=== PATIENT | male | born 1940 | race Asian ===

== ENCOUNTER 2017-08-02 14:49 | Inpatient (IN) | payer OTHER ==
[~2017-08-02] VITALS: Ht 167.6 cm; Wt 75.3 kg
[~2017-08-02 14:49] MED LIST: ATOR10TA PO; VALS40TA4
--- NOTE | 2017-08-02 15:00 | NUR ---
PRESENTS TO ER C/O CHEST PAIN STARTED THIS AM. A/OX 4, BREATHING EVEN AND UNLABORED. NO SOB, NAD, VITALS STABLE. SKIN WARM AND DRY. SAFETY AND COMFORT MEASURES IN PLACE. AWAITING MD ORDERS.
--- NOTE | 2017-08-02 15:10 | NUR ---
NEW IV STARTED ON RAC, 18G. BLOOD DRAWN AND SENT TO LAB.
[2017-08-02 15:24] LABS: BASOPHILS # (AUTO) 0.1 /CMM (0.0-0.2); BASOPHILS % (AUTO) 0.6 % (0.0-2.0); EOSINOPHILS % (AUTO) 0.4 % (0.0-6.0); HEMATOCRIT 45 % (39-51); HEMOGLOBIN 15.4 g/dL (13.5-17.5); LYMPHOCYTES % (AUTO) 10.2 % (20.0-44.0); MEAN CORPUSCULAR HGB CONC 35 g/dl (31.0-36.0); MEAN CORPUSCULAR VOLUME 92 fL (80-96); MONOCYTES # (AUTO) 0.6 /CMM (0.1-1.30); MONOCYTES % (AUTO) 6.6 % (2.0-12.0); NEUTROPHILS # (AUTO) 7.9 /CMM (1.8-8.9); NEUTROPHILS % (AUTO) 82.2 % (43.0-81.0); PLATELET COUNT (AUTO) 150 /CMM (150-450); RDW COEFFICIENT OF VARIATION 12.6 (11.5-15.0); RED BLOOD CELL COUNT(AUTO) 4.81 MIL/uL (4.5-6.0); WHITE BLOOD COUNT (AUTO) 9.6 K/uL (4.3-11.0)
[2017-08-02] MEDS ORDERED: LOSA50TA21 PO (15:27)
[2017-08-02] MEDS ORDERED: DONE10TA44 PO (15:27)
[2017-08-02] MEDS ORDERED: TAMS0.4C34 PO (15:27)
[2017-08-02] MEDS ORDERED: OMEP20CA10 PO (15:27)
[2017-08-02] MEDS ORDERED: NITROGLYCERIN PACKET 1 GM PACKET ONE (15:27)
[2017-08-02] MEDS ORDERED: TRAV5DRO RIGHTEYE (15:27)
[2017-08-02] MEDS ORDERED: ASPIRIN 325 MG TABLET ONE (15:28)
[2017-08-02] MEDS ORDERED: NITROGLYCERIN PACKET 1 GM PACKET TD ONE (15:30)
[2017-08-02] MEDS ORDERED: ASPIRIN 325 MG TABLET PO ONE (15:30)
[2017-08-02 15:33] LABS: CALCIUM, SERUM 8.5 mg/dL (8.5-10.1); CARBON DIOXIDE 30 mmol/L (21-32); CHLORIDE 104 mmol/L (98-107); CREATININE 1.1 mg/dL (0.6-1.3); GLUCOSE 166 mg/dL (74-106); POTASSIUM 3.5 mmol/L (3.5-5.1); SODIUM SERUM 140 mmol/L (136-145); UREA NITROGEN, BLOOD 18 mg/dL (7-18)
--- NOTE | 2017-08-02 15:33 | NUR ---
PATIENT MEDICATED PER MD ORDERS.
[2017-08-02 15:39] LABS: INR 0.95 (0.85-1.15)
[2017-08-02 15:41] LABS: TROPONIN I < 0.017 ng/mL (0.00-0.056)
[2017-08-02 15:48] LABS: B-TYPE NATRIURETIC PEPTIDE 29 PG/ML (0-125)
--- NOTE | 2017-08-02 15:48 | NUR ---
CALLED [facility] PROSTHETIC DENTIST WAS PAGED.
--- NOTE | 2017-08-02 16:16 | NUR ---
TELE 307.1, OTONIEL ESPINOZA
--- NOTE | 2017-08-02 16:18 | NUR ---
REPORT GIVEN TO OTONIEL ESPINOZA FOR MARTHA UPON ADMISSION.
--- NOTE | 2017-08-02 16:25 | NUR ---
PATIENT TRANSPORTED TO [facility] VIA ACLS PROTOCOL. OTONIEL ESPINOZA TO PROVIDE MARTHA.
[2017-08-02] MEDS ORDERED: MAG HYDROX/AL HYDROX/SIMETH 30 ML UDC PO PRN (16:30)
[2017-08-02] MEDS ORDERED: ACETAMINOPHEN 325 MG TABLET PO PRN (16:30)
[2017-08-02] MEDS ORDERED: HYDROCODONE/APAP 5/325MG 1 EACH TABLET PO PRN (16:30)
[2017-08-02] MEDS ORDERED: ENOXAPARIN SODIUM 40 MG/0.4 ML DISP.SYRIN SQ SCH (16:30)
[2017-08-02] MEDS ORDERED: MAGNESIUM HYDROXIDE 30 ML UDC PO PRN (16:30)
[2017-08-02] MEDS ORDERED: ZOLPIDEM TARTRATE 5 MG TABLET PO PRN (16:30)
[2017-08-02] MEDS ORDERED: ONDANSETRON HCL/PF 4 MG/2 ML VIAL IVP PRN (16:30)
[2017-08-02] MEDS ORDERED: MORPHINE SULFATE INJ 4 MG/ML DISP.SYRIN IV PRN (16:30)
[2017-08-02] MEDS ORDERED: Z GUARD REMEDY 2 OZ OINT TP PRN (16:30)
--- NOTE | 2017-08-02 16:45 | NUR ---
telecom coordinatorculinary intern notes Admitted a 76 years old male patient who came in due to chest pain. Patient is alert and oriented x 4, verbally responsive and able to make needs known. On tele monitor SR heart rate 85. Skin assessment done and pictures taken and filed in the chart. No complaint of pain or discomfort at this time. nitro on the left chest noted. Dr. Simmons ordered medications and on the medication list. kept patient clean and comfortable in bed, call light with in patient reach, will continue to monitor accordingly.
[2017-08-02] MEDS ORDERED: ATORVASTATIN 10 MG TABLET PO SCH (18:00)
[2017-08-02] MEDS ORDERED: TAMSULOSIN 0.4 MG CAP.SR.24H PO SCH (18:00)
--- NOTE | 2017-08-02 19:27 | NUR ---
telecommunications administrator closing notes All needs provided, attended, and anticipated. Patient in stable condition. Endorsed to next shift RN to continue care. Call light with in patient reach.
--- NOTE | 2017-08-02 19:33 | NUR ---
TELE/RN OPENING NOTES PATIENT AWAKE, ALERT, ORIENTED X3, ABLE TP VERBALIZE NEEDS, RESPIRATIONS EVEN AND UNLABORED, SKIN WARM TO TOUCH, DENIES PAIN, HAD LATE DINNER ABLE TO EAT 100% DINNER, PERSONAL BELONGINGS WITHIN REACH, FLUIDS AT BEDSIDE. CALL LIGHTS WITHIN REACH, BED IN LOCK POSITION.
[2017-08-02 20:00] VITALS: BP 101/62
--- NOTE | 2017-08-02 20:06 | NUR ---
TELE/RN NOTES DAUGHTER CAME TO SEE FATHER,
[2017-08-02] MEDS: NITROGLYCERIN PACKET 1 GM PACKET TOP SCH (20:44)
--- NOTE | 2017-08-02 20:45 | NUR ---
TELE/RN NOTES PATIENT DAUGHTER AND CONFIRMED BY PATIENT THAT PATIENT HAD HIT HIS HEAD BY THE SIDE TABLE IN HIS HOME PRIOR TO BEING ADMITTED TODAY AND WAS NOT ABLE TO GIVE THE DETAIL TO ER MDUPON ADMISSION,PATIENT ALERT, ORIENTED X3, WITH DEMENTIA AND TAKING DONEPEZIL AT BEDTIME. HEAD CHECK AND ASSESSED, NO PAIN REPORTED, NO SWELLING, WILL INFORM MD FOR THE REPORT FOR ANY ORDER.LAY NURSE MADE AWARE.
--- NOTE | 2017-08-02 21:18 | NUR ---
TELE/RN MD WALLPAPER CLEANER PAMELA CONTACTED REPORTED DAUGHTER CONCERN AND CONFIRMED BY PATIENT REGARDING INCIDENT OF UNWITNESSED FALL IN PATIENT HOME UPON ADMISSION TODAYU, PATIENT HAS DEMENTIA AND NOT ABLE TO PROVIDE INFORMATION ABOUT HITTING HIS HEAD THAT CAUSED FALL. MD MADE AWARE AND REOPORTED B/P IN LOW SIDE BUT NO SWOLLEN HEAD OBSERVED, ALERT X2, WITH OCCASIONAL NO EYE CONTACT AND NOTED FORGETFULNESS.
[2017-08-02] MEDS ORDERED: LATANOPROST EYE DROP 0.005% 2.5 ML BOTTLE RIGHTEYE SCH (22:00)
[2017-08-02] MEDS ORDERED: DONEPEZIL 5 MG TABLET PO SCH (22:00)
--- NOTE | 2017-08-02 22:30 | NUR ---
tele/rn notes CT SCAN STAT ORDERED, PATIENT WAS SENT ON W/C FOR CT SCAN
--- NOTE | 2017-08-02 22:51 | NUR ---
TELE/RN NOTES PATIENT CAME BACK FROM CT SCAN
[2017-08-03] VITALS: BP 103/65
[2017-08-03 04:00] VITALS: BP 111/59
[2017-08-03] MEDS: NITROGLYCERIN PACKET 1 GM PACKET TOP SCH ×2 (04:48→13:56)
[2017-08-03 06:23] LABS: BASOPHILS % (AUTO) 0.5 % (0.0-2.0); EOSINOPHILS % (AUTO) 2.1 % (0.0-6.0); HEMATOCRIT 42 % (39-51); HEMOGLOBIN 14.1 g/dL (13.5-17.5); LYMPHOCYTES % (AUTO) 16.1 % (20.0-44.0); MEAN CORPUSCULAR HGB CONC 34 g/dl (31.0-36.0); MEAN CORPUSCULAR VOLUME 98 fL (80-96); MONOCYTES # (AUTO) 0.6 /CMM (0.1-1.30); MONOCYTES % (AUTO) 9.4 % (2.0-12.0); NEUTROPHILS # (AUTO) 4.4 /CMM (1.8-8.9); NEUTROPHILS % (AUTO) 71.9 % (43.0-81.0); PLATELET COUNT (AUTO) 136 /CMM (150-450); RDW COEFFICIENT OF VARIATION 13.8 (11.5-15.0); RED BLOOD CELL COUNT(AUTO) 4.25 MIL/uL (4.5-6.0); WHITE BLOOD COUNT (AUTO) 6.1 K/uL (4.3-11.0)
--- NOTE | 2017-08-03 06:29 | NUR ---
307-1 tele/rn notes PATIENT IN BED, ALERT, ORIENTED X3 BUT FORGETFUL, ABLE TO SLEEP DURING THE NIGHT, COOPERATIVE TO CARE, RESPIRATIONS EVEN AND UNLABORED, SKIN WARM TO TOUCH, MONITORING FOR ANY PAIN, KEPT SKIN INTACT AND DRY, CALL LIGHTS WITHIN REACH, BED IN LOCK POSITION. WILL ENDORSE TO AM RN FOR MARTHA.
[2017-08-03 06:34] LABS: CHOLESTEROL 129 mg/dL (<200); HDL CHOLESTEROL 42 mg/dL (40-60); LDL 76 mg/dL (0-99); TRIGLYCERIDES 154 mg/dL (30-150)
[2017-08-03 06:37] LABS: CALCIUM, SERUM 8.2 mg/dL (8.5-10.1); CARBON DIOXIDE 27 mmol/L (21-32); CHLORIDE 105 mmol/L (98-107); CREATININE 0.9 mg/dL (0.6-1.3); GLUCOSE 123 mg/dL (74-106); MAGNESIUM 2.1 mg/dL (1.8-2.4); PHOSPHORUS 3.3 mg/dL (2.5-4.9); POTASSIUM 3.8 mmol/L (3.5-5.1); SODIUM SERUM 140 mmol/L (136-145); UREA NITROGEN, BLOOD 21 mg/dL (7-18)
[2017-08-03] MEDS ORDERED: PANTOPRAZOLE 40 MG TABLET.DR PO SCH (07:30)
--- NOTE | 2017-08-03 07:30 | NUR ---
RN MS OPENING NOTES RECEIVED PATIENT IN BED AWAKE. ALERT AND ORIENTED X3. VERBALLY RESPONSIVE, ABLE TO MAKE NEEDS KNOWN. BREATHING EVEN AND UNLABORED. SKIN WARM AND DRY TO TOUCH. CURRENTLY NO COMPLAINTS OF PAIN OR DISCOMFORT. IV LINE ON RIGHT AC #18 INTACT AND PATENT. ALL NEEDS MET. CALL LIGHT WITHIN REACH. BED ON LOWEST LOCKED POSITION.
[2017-08-03 08:00] VITALS: BP 135/72
[2017-08-03] MEDS: LOSARTAN POTASSIUM 50 MG TABLET PO SCH ×2 (08:52→09:36)
[2017-08-03] MEDS ORDERED: ASPIRIN 325 MG TABLET PO SCH (09:00)
[2017-08-03] MEDS ORDERED: METOPROLOL TARTRATE INJ 5 MG/5 ML AMPUL IVP ONE (10:00)
[2017-08-03] MEDS ORDERED: IOHEXOL-350 100 ML VIAL IV ONE (10:55)
[2017-08-03] MEDS ORDERED: METOPROLOL TARTRATE INJ 5 MG/5 ML AMPUL ONE (11:04)
[2017-08-03] MEDS ORDERED: NITROGLYCERIN 4.9 GM SPRAY ONE (11:05)
[2017-08-03] MEDS ORDERED: NITROGLYCERIN 0.4 MG/TAB BOTTLE ONE (11:05)
--- NOTE | 2017-08-03 11:14 | NUR ---
RN MS NOTES PATIENT PICKED UP FOR CTA.
--- NOTE | 2017-08-03 15:57 | NUR ---
SW received a call from pt's ALEXIS Figueroa informing SW that pt. was seen by psychiatrist Dr. Scruggs and not prescribed any psychotropics. Pt's daughter is requesting mental health referrals. ELIAS gave pt's ALEXIS Figueroa list of Mental health referrals for the [facility].
[2017-08-03 16:00] VITALS: BP 122/80
--- NOTE | 2017-08-03 18:00 | NUR ---
MANAGER RECRUITING NOTES PATIENT WAS DISCHARGED TO HOME TODAY AT 1800 WITH DAUGHTERANAYA, VIA PRIVATE CAR. PATIENT LEFT IN STABLE CONDITION. IV LINE ON RIGHT AC# 18 WAS REMOVED. PATIENT REFUSED TO DO SKIN CHECK. DAUGHTER, ANAYA MADE AWARE OF DISCHARGE INSTRUCTIONS. INSTRUCTED TO CONTINUE HOME MEDICATIONS, FOLLOW-UP WITH PCP, AND TO CALL 911 IN CASE OF EMERGENCY. DAUGHTER VERBALIZED UNDERSTANDING AND SIGNED DISCHARGED FORM. LIST OF MEDICATIONS GIVEN. PATIENT'S BELONGINGS ACCOUNTED FOR - PATIENT SIGNED BELONGINGS FORM. PATIENT AND DAUGHTER WAS ASSISTED BY RN TO LOBBY.
== END 2017-08-03 18:00 | disposition home or self-care (01) | DRG 205 ==
LOC: ER 14:51 → TELE 16:27 → MED 08-03 06:48
PROVIDERS: ADMIT Internal Medicine; ATTEND Internal Medicine
DX: M94.0 Chondrocostal junction syndrome [Tietze] (principal); G93.40 Encephalopathy, unspecified; I10 Essential (primary) hypertension; K21.9 Gastro-esophageal reflux disease without esophagitis; F03.90 Unspecified dementia, unspecified severity, without behavioral disturbance, psychotic disturbance, mood disturbance, and anxiety; Z85.038 Personal history of other malignant neoplasm of large intestine; Z79.899 Other long term (current) drug therapy; N40.0 Benign prostatic hyperplasia without lower urinary tract symptoms; E78.5 Hyperlipidemia, unspecified
CPT/HCPCS: 36415; 70450-TC; 71045-TC; 75574; 80048-TC; 80061-TC; 83735-TC; 83880; 84100-TC; 84484-TC; 85025-TC; 85730-TC; 87081-TC; 93307-TC; A4606; J1650; J3490; Q9967; Z7610